=== PATIENT | female | born 1970 | race Caucasian/White ===

== ENCOUNTER 2023-06-25 16:41 | Emergency (ER) | payer SELFPAY ==
[2023-06-25 16:44] VITALS: PULSE 66; RESP 22; TEMP 37; O2SAT 98; BMI 48.0
--- NOTE | 2023-06-25 17:04 | XR_ITS ---
The [address] [address] Patient Name: JOSÉ MIGUEL DURAN MRN: [id number] date: 1970 Sex: F Assigned Patient Location: ER Current Patient Location: Accession/Order Number: [id number] Exam Date: 06/25/2023 17:10 Report Date: 06/25/2023 20:32 At the request of: JEREMY KNOTT Procedure: XR chest 1V ONE-VIEW CHEST RADIOGRAPH, 06/25/2023 5:10 PM EST COMPARISON: None. CLINICAL HISTORY: Cough and headache with body aches for a day. FINDINGS: No acute cardiopulmonary disease. No pulmonary edema, pneumothorax, or pleural effusion. Normal heart size. No acute osseous abnormality. XR/XR chest 1V IMPRESSION: No acute abnormality identified. Electronically authenticated by: Janet DAY Date: 06/25/2023 20:32
--- NOTE | 2023-06-25 17:04 | ED_ITS ---
HPI - URI/Sore Throat General Chief Complaint: Upper Respiratory Infection Stated Complaint: COUGH, HEADACHE, ACHES Time Seen by Provider: 06/25/23 17:03 Source: patient Limitations: no limitations History of Present Illness HPI Narrative: patient presents with upper respiratory-type symptoms starting today. She tested Covid negative at home.she says she woke up with terrible terrible aches and pains all over. She's never got a Covid or influenza vaccine. 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 She also has a history of asthma. She quit smoking a number of years ago. She does not have a purulent sputum.states that she has psoriatic arthritis but is not on any medications for that. She is not taking any antibiotics. She has a pulse oximeter at home is been riding about ninety-five percent and she says that's normal for her. She does not have a peak flow meter. She has a nebulizer machine at home but does not have any meds for it. She does not have a fresh meter dose inhalers. Related Data Home Medications Medication Instructions Recorded Confirmed cyclobenzaprine 10 mg tablet 10 mg PO BID PRN muscle spasm 06/25/23 06/25/23 metoprolol tartrate 50 mg tablet 50 mg PO BID 06/25/23 06/25/23 Allergies Allergy/AdvReac Type Severity Reaction Status Date / Time No Known Drug Allergies Allergy Verified 06/25/23 16:49 [facility] Social History Smoking status: Former smoker Exam Narrative Exam Narrative: awake alert oriented ?3 very pleasant she states she is a nurse. She states that she does have a pulse oximeter at home. Vital signs are noted. Blood pressure is excellent she is afebrile pulse oximetry normal. Examination rest trace status she does have some wheezing and tightness but adequate air flow bilaterally. There is no substantial Sema. Chest shows normal heart sounds with no clicks rubs gallops or murmurs. She has skin findings consistent with psoriatic arthritis but they're not bothering her at this time. ENT examination shows no airway obstruction no stridor no drooling or posturing. No jugular vein distention. Constitutional Vital Signs, click to edit/add: Last Vital Signs Temp 98.6 F 06/25/23 16:44 Pulse 74 06/25/23 17:22 Resp 20 06/25/23 17:22 BP 116/84 06/25/23 17:22 Pulse Ox 98 06/25/23 17:46 O2 Del Method Room Air 06/25/23 17:46 Course Vital Signs Vital signs: Vital Signs Temperature 98.6 F 06/25/23 16:44 Pulse Rate 66 06/25/23 16:44 Respiratory Rate 22 06/25/23 16:44 Pulse Oximetry 98 06/25/23 16:44 Oxygen Delivery Method Room Air 06/25/23 16:44 Temperature 98.6 F 06/25/23 16:44 Pulse Rate 74 06/25/23 17:22 Respiratory Rate 20 06/25/23 17:22 Blood Pressure 116/84 06/25/23 17:22 Pulse Oximetry 98 06/25/23 17:46 Oxygen Delivery Method Room Air 06/25/23 17:46 MDM - URI/Sore Throat MDM Narrative Medical decision making narrative: patient's chest x-ray does not show a pneumonia. Her Covid and influenza testing are normal. Because of her bronchospasm she was given a DuoNeb. I'm also going to give her a refill for albuterol nebulizer and her metered-dose inhaler. Lab Data Labs: Lab Results 06/25/23 Range/Units 17:30 WBC 10.6 (4.0-11.0) 10^3/uL RBC 4.82 (4.20-5.40) 10^6/uL Hgb 14.1 (12.0-16.0) g/dL Hct 44.2 (36.0-48.0) % MCV 91.7 (81.0-99.0) fL MCH 29.3 (26.7-34.0) pg MCHC 31.9 (29.9-35.2) g/dL RDW 13.8 (11.0-15.0) % Plt Count 234 (150-450) 10^3/uL MPV 9.8 (9.5-13.5) fL Neut % (Auto) 58.9 (43.0-75.0) % Lymph % (Auto) 32.4 (20.5-60.0) % [place] % (Auto) 6.4 (1.7-12.0) % Eos % (Auto) 1.9 (0.9-7.0) % Baso % (Auto) 0.2 (0.2-2.0) % Neut # (Auto) 6.3 (1.4-6.5) 10^3/uL Lymph # (Auto) 3.4 (1.2-3.8) 10^3/uL [place] # (Auto) 0.7 (0.3-0.8) 10^3/uL Eos # (Auto) 0.2 (0.0-0.7) 10^3/uL Baso # (Auto) 0.0 (0.0-0.1) 10^3/uL Abs Immat Gran (auto) 0.02 (0.00-0.03) 10^3/uL Imm/Tot Granulo (auto) 0.2 (0.0-0.5) % Sodium 141 (136-145) mmol/L Potassium 3.8 (3.5-5.1) mmol/L Chloride 103 (98-107) mmol/L Carbon Dioxide 25.4 (21.0-32.0) mmol/L Anion Gap 16.4 BUN 14.0 (7.0-18.0) mg/dL Creatinine 1.05 H (0.55-1.02) mg/dL Est GFR ( Amer) >60 (>=60) Est GFR (Non-Af Amer) 55 L (>=60) BUN/Creatinine Ratio 13.3 Glucose 114 H (74-106) mg/dL Calcium 9.5 (8.5-10.1) mg/dL Total Bilirubin 0.4 (0.2-1.0) mg/dL AST 22 (15-37) U/L ALT 33 (14-59) U/L Alkaline Phosphatase 98 (46-116) U/L Total Protein 7.2 (6.4-8.2) g/dL Albumin 3.7 (3.4-5.0) g/dL Globulin 3.5 g/dL Albumin/Globulin Ratio 1.1 SARS-CoV-2 (PCR) Negative (NEGATIVE) Influenza Type A Ag Negative Influenza Type B Ag Negative Discharge Plan Discharge Chief Complaint: Upper Respiratory Infection Clinical Impression: Exacerbation of reactive airway disease Patient Disposition: Home, Self-Care Time of Disposition Decision: 18:36 Prescriptions / Home Meds: No Action cyclobenzaprine 10 mg tablet 10 mg PO BID PRN (Reason: muscle spasm) metoprolol tartrate 50 mg tablet 50 mg PO BID Additional Instructions: albuterol inhaler/Medrol Aleksandr Stand Alone Forms: Portal Instructions Referrals: Physician,Non-Staff, MD [Primary Care Provider] - 1 week
[2023-06-25 17:22] VITALS: BP 116/84; PULSE 74; RESP 20; O2SAT 97
[2023-06-25 17:39] LABS: Basophils Percent Auto 0.2 % (0.2-2.0); Eosinophils Absolute Auto 0.2 10^3/uL (0.0-0.7); Eosinophils Percent Auto 1.9 % (0.9-7.0); Hematocrit 44.2 % (36.0-48.0); Hemoglobin 14.1 g/dL (12.0-16.0); Immature Granulocytes Abs Auto 0.02 10^3/uL (0.00-0.03); Immature Granulocytes Pct Auto 0.2 % (0.0-0.5); Lymphocytes Absolute Auto 3.4 10^3/uL (1.2-3.8); Lymphocytes Percent Auto 32.4 % (20.5-60.0); Mean Corpuscular HGB Conc 31.9 g/dL (29.9-35.2); Mean Corpuscular Hemoglobin 29.3 pg (26.7-34.0); Mean Corpuscular Volume 91.7 fL (81.0-99.0); Mean Platelet Volume 9.8 fL (9.5-13.5); Monocytes Absolute Auto 0.7 10^3/uL (0.3-0.8); Monocytes Percent Auto 6.4 % (1.7-12.0); Neutrophils Absolute Auto 6.3 10^3/uL (1.4-6.5); Neutrophils Percent Auto 58.9 % (43.0-75.0); Platelet Count 234 10^3/uL (150-450); Red Blood Count 4.82 10^6/uL (4.20-5.40); Red Cell Distribution Width 13.8 % (11.0-15.0); White Blood Count 10.6 10^3/uL (4.0-11.0)
[2023-06-25] MEDS: IPRATROPIUM/ALBUTEROL SULFATE 3 ML AMPUL.NEB IH (17:45)
[2023-06-25 17:46] VITALS: O2SAT 98
[2023-06-25 17:51] LABS: SARS-CoV-2 Ag NEGATIVE (NEGATIVE)
[2023-06-25 17:56] LABS: Alanine Aminotransferase 33 U/L (14-59); Albumin Globulin Ratio 1.1; Albumin Level 3.7 g/dL (3.4-5.0); Alkaline Phosphatase 98 U/L (46-116); Anion Gap 16.4; Aspartate Amino Transferase 22 U/L (15-37); BUN Creatinine Ratio 13.3; Bilirubin Total 0.4 mg/dL (0.2-1.0); Calcium 9.5 mg/dL (8.5-10.1); Carbon Dioxide 25.4 mmol/L (21.0-32.0); Chloride 103 mmol/L (98-107); Estimated GFR (African America >60 (>=60); Estimated GFR (Non-African Ame 55 (>=60); Globulin 3.5 g/dL; Glucose 114 mg/dL (74-106); Influenza Virus A Antigen Negative; Influenza Virus B Antigen Negative; Internal Control Within Normal Limits; Potassium 3.8 mmol/L (3.5-5.1); Sodium 141 mmol/L (136-145); Total Protein 7.2 g/dL (6.4-8.2)
[2023-06-26 14:53] LABS: SARS-CoV-2 NAA NOT DETECTED (NOT DETECTE)
== END 2023-06-25 18:47 | disposition home or self-care (01) ==
PROVIDERS: Emergency Provider Emergency Medicine Emergency Medical Services
DX: J45.901 Unspecified asthma with (acute) exacerbation (principal); L40.50 Arthropathic psoriasis, unspecified; Z20.822 Contact with and (suspected) exposure to COVID-19; Z87.891 Personal history of nicotine dependence; Z79.899 Other long term (current) drug therapy
CPT/HCPCS: 36415; 71045; 80053; 85025; 87635; 87798; 87804; 87811; 94640; 99285